=== PATIENT | female | born 1985 | race Caucasian/White ===

== ENCOUNTER 2017-07-11 08:32 | Emergency (ER) | payer SELFPAY ==
[~2017-07-11] VITALS: Ht 167.6 cm; Wt 100.5 kg
[2017-07-11 08:33] VITALS: BP 148/84; PULSE 83; RESP 14; TEMP 98.7; O2SAT 100
--- NOTE | 2017-07-11 09:35 | RADRPT ---
EXAM DATE/TIME: 07/11/2017 09:11 [place] COMPARISON: No previous studies available for comparison. INDICATIONS : Short of breath, coughing up phlegm MEDICAL HISTORY : None. SURGICAL HISTORY : None. ENCOUNTER: Initial ACUITY: 2 days PAIN SCORE: 0/10 LOCATION: Bilateral chest FINDINGS: A single view of the chest demonstrates the lungs to be symmetrically aerated without evidence of mas s, infiltrate or effusion. The cardiomediastinal contours are unremarkable. Osseous structures are intact. CONCLUSION: No acute disease. Dustin Christianson MD on July 11, 2017 at 9:32 Board Certified Radiologist. This report was verified electronically.
--- NOTE | 2017-07-11 09:42 | PD ---
HPI Chief Complaint: ENT Complaint Time Seen by Provider: 08:46 Travel History International Travel<30 days: No Contact w/Intl Traveler<30days: No Traveled to known affect area: No History of Present Illness HPI 32 year old female presents to the emergency department for evaluation of fever , cough and sore throat x 2 days. Patient states the cough is productive in nature with thick yellow phlegm. Cough is worse when laying down. Patient states her fever was 102 last night and she took Motrin and it broke. Patient last took 600mg Motrin at 7am this morning. Patient denies any smoking, ETOH or drug use. PFSH Past Medical History ?: Not LMP: "DOESN'T GET PERIODS" Social History Tobacco Use: No Allergies-Medications (Allergen,Severity, Reaction): Coded Allergies: Penicillins (Verified Allergy, Severe, 07/11/17) Review of Systems Except as stated in HPI: all other systems reviewed are Neg General / Constitutional: Positive: Fever HENT: Positive: Sore Throat Physical Exam Narrative GENERAL: Well-nourished, well-developed 32 year old white female patient in no acute distress. SKIN: Focused skin assessment warm/dry. HEAD: Normocephalic. Atraumatic. EYES: No scleral icterus. No injection or drainage. THROAT: Mild pharyngeal injection with white exudates. Airway is patent. NECK: Supple, trachea midline. No JVD or lymphadenopathy. CARDIOVASCULAR: Regular rate and rhythm without murmurs, gallops, or rubs. RESPIRATORY: Breath sounds equal bilaterally. No accessory muscle use. GASTROINTESTINAL: Abdomen soft, non-tender, nondistended. MUSCULOSKELETAL: No cyanosis, or edema. BACK: Nontender without obvious deformity. No CVA tenderness. Data Data Last Documented VS Vital Signs Date Time Temp Pulse Resp B/P (MAP) Pulse Ox O2 Delivery O2 Flow Rate FiO2 07/11/17 08:33 98.7 83 14 148/84 (105) 100 Orders Orders Influenzae A/B Antigen (07/11/17 08:56) Chest, Single Ap (07/11/17 08:56) Group A Rapid Strep Screen (07/11/17 09:27) MDM Medical Decision Making Medical Screen Exam Complete: Yes Emergency Medical Condition: Yes Differential Diagnosis Differential diagnosis include but not limited to viral syndrome, influenza, URI , pneumonia, bronchitis, strep pharyngitis, viral pharyngitis Narrative Course Influenza negative. Rapid strep positive. Patient is allergic to penicillin. She will be discharged with rx for Azithromycin. Chest x-ray shows no acute disease. Patient discharged with antibiotic rx, instructions for supportive care and to return to the emergency department with any worsening condition. Diagnosis Primary Impression: Strep pharyngitis Referrals: Primary Care Physician Patient Instructions: General Instructions, Strep Throat (ED) Additional Instructions: Please return to emergency department if your symptoms return or worsen. Follow up with your primary care provider. Take medications as prescribed. Med/Other Pt SpecificInfo: Prescription(s) given Scripts Azithromycin (Azithromycin) 500 Mg Tab 500 MG PO DAILY for Infection for 5 Days, #5 TAB 0 Refills Prov: Jenny Lund 07/11/17 Disposition: 01 DISCHARGE HOME Condition: Stable Jenny Lund Jul 11, 2017 09:42
[2017-07-11] MEDS ORDERED: AZIT500T2 PO (09:47)
== END 2017-07-11 09:59 | disposition home or self-care (01) ==
LOC: NEPD 08:32
DX: J02.0 Streptococcal pharyngitis (principal)
CPT/HCPCS: 71045; 87804; 87880; 99283